=== PATIENT | female | born 2000 | race African-American/Black ===

== ENCOUNTER 2019-03-31 10:34 | Outpatient (CLI) | payer MEDICAID ==
--- NOTE | 2019-03-31 11:12 | ULT ---
US Pelvic Transvag W Doppler History: Pelvic pain Comparison: None. Findings: Real-time grayscale, color, and spectral analysis of the pelvis was performed transabdomina l and transvaginal approach. Uterus measures 6.8 x 3.8 x 3.2 cm. Endometrial thickness is 1 cm. Right ovary measures 3.8 x 1.7 x 2.6 cm and the left ovary measures 3.8 x 2.2 x 1.9 cm. There is a 2 cm cyst left ovary. No significant free fluid in the pelvis. Impression: Normal pelvic ultrasound.
== END 2019-03-31 10:35 | disposition home or self-care (01) ==
LOC: BICULT 10:34
PROVIDERS: ATTEND Nurse Practitioner Women's Health
DX: R10.2 Pelvic and perineal pain (principal)
CPT/HCPCS: 76856

== ENCOUNTER 2019-06-08 07:36 | Outpatient (CLI) | payer MEDICAID ==
--- NOTE | 2019-06-08 09:31 | ULT ---
PELVIC ULTRASOUND INCLUDING TRANSABDOMINAL IMAGING WITH VASCULAR DUPLEX AND COLOR AND SPECTRAL DOPPLE R IMAGING: COMPARISON: 03/31/2019. FINDINGS: Uterus measures 7.5 x 3.9 x 3.1 cm. Endometrium 0.9 cm. Right ovary 1.9 x 2.0 x 3.6 cm. Left ovary 1.2 x 2.1 x 2.6 cm with a small 1.2 x 1.4 follicle cyst. No abscess or abnormal fluid col lection. Vascular flow is documented to both ovaries. No evidence for ovarian torsion. IMPRESSION: Unremarkable pelvic ultrasound. Incidental small left ovarian functional cyst. Stable findings from prior study. POS: [facility]
== END 2019-06-08 07:37 | disposition home or self-care (01) ==
LOC: BICULT 07:36
PROVIDERS: ATTEND Nurse Practitioner Women's Health
DX: R10.2 Pelvic and perineal pain (principal); N83.202 Unspecified ovarian cyst, left side
CPT/HCPCS: 76856